=== PATIENT | female | born 1940 | race Two or more races ===

== ENCOUNTER 2020-06-07 06:31 | Day surgery (SDC) | payer MEDICARE, MEDICAID ==
--- NOTE | 2020-06-04 16:06 | Pre-Procedure Note/Attestation ---
Pre-Procedure Note/Attestation Complete Prior to Procedure Planned Procedure: right Procedure Narrative: Cataract extraction with IOL implant right eye Indications for Procedure Pre-Operative Diagnosis: Nuclear sclerotic cataract right eye Attestation I attest that I discussed the nature of the procedure; its benefits; risks and complications; and alternatives (and the risks and benefits of such alternatives), prior to the procedure, with the patient (or the patient's legal advertising sales representative). I attest that, if there was a reasonable possibility of needing a blood transfusion, the patient (or the patient's legal advertising sales representative) was given the [facility] standardized written summary, pursuant to the [employer] [place] Blood Safety Act ([place] Health and Safety Code # 1645, as amended). I attest that I re-evaluated the patient just prior to the surgery and that there has been no change in the patient's H&P, except as documented below: Odilon Snyder MD Jun 04, 2020 16:06
--- NOTE | 2020-06-04 16:09 | Opthalmology H&P ---
Ophthalmology H&P H&P Chief Complaint: decreased vision in right eye HPI Vision Affects Ability to: read, manage personal affairs HPI Narrative Blurry vision Exam Visual Acuity: OD 20/125 OS Counting fingers Tension: OD 14 OS 11 Eye Exam: normal OU: external exam, palpebral fissure-width, marginal reflex distance, levator function, corneas, anterior chambers, fundus exam; findings: lens - NS/CC Cataracts OU Assessment/Plan Treatment Plan: cataract extraction w/ lens implant Goals of Treatment: improvement of vision, enhance quality of life Attestation Attestation The risks and benefits of the surgery as well as alternative procedures were explained to the patient in detail. Odilon Snyder MD Jun 04, 2020 16:08
[~2020-06-07] VITALS: Ht 167.6 cm; Wt 53.5 kg
[2020-06-07] VITALS (9 sets, daily range): BP systolic 163–188; BP diastolic 64–82
[~2020-06-07 06:31] MED LIST: Bystolic PO; Tobramycin Op Soln 0.3% 5ml RIGHT EYE ONE
[2020-06-07] MEDS ORDERED: Pilocarpine 1% Opth 15ml Soln ONE (07:00)
[2020-06-07] MEDS ORDERED: Tobradex Opth Oint 3.5gm RIGHT EYE ONE (07:00)
[2020-06-07] MEDS ORDERED: Maxitrol Opth Oint 3.5gm ONE (07:00)
[2020-06-07] MEDS ORDERED: Akten 3.5% 1ml Btl RIGHT EYE ONE (07:00)
[2020-06-07] MEDS ORDERED: Diclofenac Sod 0.1% Op Soln RIGHT EYE ONE (07:00)
[2020-06-07] MEDS ORDERED: Proparacaine 0.5% Opth Soln 15ml RIGHT EYE ONE (07:00)
[2020-06-07] MEDS ORDERED: Cyclopentolate 2% Opth Sol RIGHT EYE ONE (07:00)
[2020-06-07] MEDS ORDERED: prednisoLONE acetate 1% Opth Susp 1ml ONE (07:00)
[2020-06-07] MEDS ORDERED: Tetracaine 0.5% Opth 4ml Soln ONE (07:00)
[2020-06-07] MEDS ORDERED: Tetracaine 0.5% Opth 4ml Soln RIGHT EYE ONE (07:00)
[2020-06-07] MEDS: Phenylephrine 10% Opth Soln 5ml RIGHT EYE SCH ×3 (09:42→10:03)
[2020-06-07] MEDS: Tropicamide 1% Opth 15ml Soln RIGHT EYE SCH ×3 (09:42→10:03)
[2020-06-07] MEDS ORDERED: ASPIRIN EC81 MG ORAL (10:25)
[2020-06-07] MEDS ORDERED: LIPITOR40 MG ORAL (10:25)
[2020-06-07] MEDS ORDERED: CILOSTAZOL100 MG PO (10:26)
[2020-06-07] MEDS ORDERED: NAMENDA5 MG ORAL (10:26)
[2020-06-07] MEDS ORDERED: PLAVIX75 MG ORAL (10:27)
[2020-06-07] MEDS ORDERED: HYDROCODON-ACE1 EA16 ORAL (10:28)
[2020-06-07] MEDS ORDERED: COLACE100 MG ORAL (10:29)
[2020-06-07] MEDS ORDERED: LR 1000ml ONE (11:00)
[2020-06-07] MEDS ORDERED: Sterile Water Irrig 1000ml IRRIG ONE (11:00)
[2020-06-07] MEDS ORDERED: NS Irrig 1000ml ONE (11:00)
[2020-06-07] MEDS ORDERED: fentaNYL 100 mcg/2 mL IV ONE (11:19)
[2020-06-07] MEDS ORDERED: Midazolam 2mg/2ml Inj ONE (11:20)
--- NOTE | 2020-06-07 11:39 | Anethesia Preoperative Eval ---
Anesthesia Pre-op PMH/ROS General Date of Evaluation: Jun 07, 2020 Time of Evaluation: 11:16 Anesthesiologist: tu ASA Score: ASA 4 Mallampati Score Class I : Soft palate, uvula, fauces, pillars visible Class II: Soft palate, uvula, fauces visible Class III: Soft palate, base of uvula visible Class IV: Only hard plate visible Mallampati Classification: Class II Surgeon: deirdre Diagnosis: nuclear sclerotic cataract right eye Surgical Procedure: cataract extraction w/ iol right eye Anesthesia History: none Social History: smoking - fomer smoker Family History: no anesthesia problems Allergies: Coded Allergies: No Known Allergies (Unverified , 06/03/20) Medications: see eMAR Patient NPO?: Yes Past Medical History Cardiovascular: Reports: HTN, CAD, [place], other - pvd Gastrointestinal/Genitourinary: Reports: CRI Neurologic/Psychiatric: Reports: CVA HEENT: Reports: cataract (L), cataract (R) Musculoskeletal/Integumentary: Reports: OA Anesthesia Pre-op Phys. Exam Physician Exam Last Vital Signs Date Time Temp Pulse Resp B/P (MAP) Pulse Ox O2 Delivery O2 Flow Rate FiO2 06/07/20 10:18 Room Air 06/07/20 09:51 98.4 69 18 177/74 99 Constitutional: NAD Neurologic: CN 2-12 intact Cardiovascular: RRR Respiratory: CTA Gastrointestinal: S/NT/ND Airway Exam Mallampati Score: Class II MO: limited Neck: flexible TMD: 2fb ROM: limited Anesthesia Pre-op A/P Labs Microbiology Date/Time Source Procedure Growth Status 06/04/20 10:25 Nasopharynx SARS-CoV-2 RdRp Gene Assay - Final Complete Risk Assessment & Plan Assessment: asa4 Plan: mac Status Change Before Surgery: No Pre-Antibiotics Drug: Rand Delgadillo MD Jun 07, 2020 11:39
[2020-06-07] MEDS ORDERED: Atropine Inj 1mg/10ml Syr IVP PRN (11:45)
[2020-06-07] MEDS ORDERED: LR 1000ml 1,000 ML IVLG SCH (11:45)
[2020-06-07] MEDS ORDERED: Labetalol 5mg/ml 20ml vial IV PRN (11:45)
[2020-06-07] MEDS ORDERED: fentaNYL 100 mcg/2 mL IV PRN (11:45)
[2020-06-07] MEDS ORDERED: DiphenhydrAMINE 50mg/ml Inj IVP PRN (11:45)
[2020-06-07] MEDS ORDERED: Midazolam 2mg/2ml Inj IVP PRN (11:45)
--- NOTE | 2020-06-07 14:16 | Immediate Post-Op Evaluation ---
Immediate Post-Op Evalulation Immediate Post-Op Evalulation Procedure: cataract extraction w/iol right eye Date of Evaluation: Jun 07, 2020 Time of Evaluation: 12:14 IV Fluids: 500ml lr Blood Products: none Estimated Blood Loss: negligible Blood Pressure Systolic: 171 Blood Pressure Diastolic: 73 Pulse Rate: 80 Respiratory Rate: 18 O2 Sat by Pulse Oximetry: 99 Temperature (Fahrenheit): 98.7 Pain Score (1-10): 0 Nausea: No Vomiting: No Complications none Patient Status: awake, reacts, patent Hydration Status: adequate Drug: Rand Delgadillo MD Jun 07, 2020 14:16
--- NOTE | 2020-06-07 14:17 | 48 Hour Post Anesthesia Eval ---
Post Anesthesia Evaluation Procedure: cataract extraction w/iol right eye Date of Evaluation: Jun 07, 2020 Time of Evaluation: 12:16 Blood Pressure Systolic: 167 0: 65 Pulse Rate: 64 Respiratory Rate: 18 Temperature (Fahrenheit): 98.7 O2 Sat by Pulse Oximetry: 99 Airway: patent Nausea: No Vomiting: No Pain Intensity: 0 Hydration Status: adequate Cardiopulmonary Status: stable Mental Status/LOC: patient returned to baseline Post-Anesthesia Complications: none Follow-up care needed: N/A Rand Butler MD Jun 07, 2020 14:17
[2020-06-07] MEDS ORDERED: BSS 15ml BTL ONE (14:21)
[2020-06-07] MEDS ORDERED: Povidone-Iodine 5% opth solution ONE (14:21)
[2020-06-07] MEDS ORDERED: EPINEPHrine 1mg/1ml Amp ONE (14:21)
[2020-06-07] MEDS ORDERED: BSS 500ml btl ONE (14:21)
[2020-06-07] MEDS ORDERED: Sodium Hyaluronate 10 mg/ml 0.85ml ONE (14:21)
--- NOTE | 2020-06-08 11:04 | Brief Operative Note ---
Immediate Post Operative Note Operative Note Chief Complaint: Blurry vision Pre-op Diagnosis: Nuclear sclerotic cataract right eye Procedure: Cataract extraction with IOL implant right eye Post-op Diagnosis: Pseudo OD Findings: consistent w/pre-op dx studies Surgeon: Odilon Snyder MD Anesthesiologist: Rand Lewis MD Anesthesia: MAC Specimen: none Complications: none Condition: stable Fluids: LR Estimated Blood Loss: none Drains: none Implant(s) used?: Yes - IOL-OD Odilon Snyder MD Jun 08, 2020 11:04
--- NOTE | 2020-06-08 11:07 | Operative Note - PDOC ---
Operative Note Operative Note Date of Operation/Procedure: Jun 07, 2020 Chief Complaint: Blurry vision Pre-op Diagnosis: Nuclear sclerotic cataract right eye Procedure: Cataract extraction with IOL implant right eye Post-op Diagnosis: Pseudo OD Operative Findings: consistent w/pre-op dx studies Surgeon: Odilon Snyder MD Anesthesiologist: Rand Lewis MD Anesthesia: MAC Specimen: none Complications: none Condition: stable Fluids: LR Estimated Blood Loss: none Drains: none Implant(s) used?: Yes - IOL-OD Indications for Procedure Nuclear sclerotic cataract right eye Description of Procedure This patient has been complaining visually significant cataract in the right eye with the best corrected visual acuity of 20/125 and under moderate glare conditions worse. The patient complains of difficulties with glare in performing activities of daily living and wants to manage personal affairs with comfort and accuracy and see well enough to move with safety at home and outdoors. The risks, benefits and alternatives of the procedure were discussed with the patient in the office prior to scheduling surgery. All questions from the patient were answered after the surgical procedure was explained in detail. The risks of the procedure as explained to the patient include, but are not limited to, pain, infection, bleeding, loss of vision, retinal detachment, need for further surgery, loss of lens nucleus, double vision, etc. Alternative procedure s were discussed which include, to do nothing or seek a second opinion. Informed consent for this procedure was obtained from the patient. The patient was referred to a primary care physician for a cardiopulmonary clearance prior to surgery, after proper evaluation was done patient was properly scheduled for outpatient surgery. The patient was brought to the operating room where the anesthesiologist established I.V. lines and cardiac monitoring leads. Mild intravenous sedation was administered. The patient was then prepared with a 5% solution of povidone-iodine to the conjunctival fornix and lashes, and a 5% solution of povidone-iodine to the lids and periorbital skin. The patient was then draped in the usual sterile fashion. A lid speculum was then placed in the operative eye. A keratome blade was then used to create a biplanar incision into the anterior chamber. Viscoelastics was then instilled into the anterior chamber. A capsulorrhexis was then fashioned with an utrata forceps. The lens nucleus was hydrodissected and hydrodelineated with a G 27 Cannula. Paracentesis incision was made at 3 o'clock with sharp blade. The phacoemulsification unit, after being properly adjusted and tested, was then used to emulsify the nucleus followed by aspiration and irrigation of residual cortical material. [place] was then instilled into the anterior chamber. The corneal wound was then enlarged to the size of the optic with the geovanni keratome blade. The intraocular lens was then inspected for right power and size and thought to be satisfactory. Then the lens was gently placed in the capsular bag. Positioning within the capsular bag was confirmed by direct visualization. Optic centration was accomplished with a [place] hook. Viscoelastics was removed from the anterior chamber using the irrigation and aspiration unit. The corneal wound was then tested for leaks and none were found. The lid speculum were then removed. Sponge and needle counts were correct. An eye patch and shield were placed over the operative eye. The patient was taken to the recovery room in stable condition. There were no complications. The patient tolerated the procedure well. The patient was then transferred to the ambulatory surgery unit in stable and satisfactory condition, was given detailed written instructions and asked to follow up in the office the next day. Odilon Snyder MD Jun 08, 2020 11:06
== END 2020-06-07 13:30 | disposition home or self-care (01) ==
LOC: SUR 06:31
DX: H25.11 Age-related nuclear cataract, right eye (principal); Z87.891 Personal history of nicotine dependence; I25.2 Old myocardial infarction; I11.9 Hypertensive heart disease without heart failure; I25.10 Atherosclerotic heart disease of native coronary artery without angina pectoris; M19.90 Unspecified osteoarthritis, unspecified site; Z86.73 Personal history of transient ischemic attack (TIA), and cerebral infarction without residual deficits
CPT/HCPCS: 66984; 94003; J0171; J1100; J2250; J3010; J3370; J7120; U0002; V2632; 94150

== ENCOUNTER 2020-07-05 06:25 | Day surgery (SDC) | payer MEDICARE, MEDICAID ==
--- NOTE | 2020-07-01 18:03 | Opthalmology H&P ---
Ophthalmology H&P H&P Chief Complaint: decreased vision in left eye HPI Vision Affects Ability to: read, focus/use eyes together, manage personal affairs HPI Narrative Blurry vision Exam Visual Acuity: OD 20/20 OS COUNTING FINGERS Tension: OD 15 OS 14 Eye Exam: normal OU: external exam, palpebral fissure-width, marginal reflex di stance, levator function, corneas, anterior chambers, fundus exam; findings: lens - IOL-OD,NS Cataract OS Assessment/Plan Treatment Plan: cataract extraction w/ lens implant Goals of Treatment: improvement of vision, enhance quality of life Attestation Attestation The risks and benefits of the surgery as well as alternative procedures were explained to the patient in detail. Odilon Snyder MD Jul 01, 2020 18:03
--- NOTE | 2020-07-01 18:04 | Pre-Procedure Note/Attestation ---
Pre-Procedure Note/Attestation Complete Prior to Procedure Planned Procedure: left Procedure Narrative: Cataract extraction with intraocular lens implant left eye Indications for Procedure Pre-Operative Diagnosis: Nuclear sclerotic cataract left eye Attestation I attest that I discussed the nature of the procedure; its benefits; risks and complications; and alternatives (and the risks and benefits of such alternatives), prior to the procedure, with the patient (or the patient's legal client service representative). I attest that, if there was a reasonable possibility of needing a blood transfusion, the patient (or the patient's legal client service representative) was given the [facility] standardized written summary, pursuant to the [employer] [place] Blood Safety Act ([place] Health and Safety Code # 1645, as amended). I attest that I re-evaluated the patient just prior to the surgery and that there has been no change in the patient's H&P, except as documented below: Odilon Snyder MD Jul 01, 2020 18:04
[~2020-07-05] VITALS: Ht 167.6 cm; Wt 54.4 kg
[2020-07-05] VITALS (10 sets, daily range): BP systolic 135–200; BP diastolic 67–95
[~2020-07-05 06:25] MED LIST changes: +ASPIRIN EC81 MG ORAL; +CILOSTAZOL100 MG PO; +COLACE100 MG ORAL; +HYDROCODON-ACE1 EA16 ORAL; +LIPITOR40 MG ORAL; +NAMENDA5 MG ORAL; +PLAVIX75 MG ORAL; -Tobramycin Op Soln 0.3% 5ml RIGHT EYE ONE
[2020-07-05] MEDS ORDERED: Maxitrol Opth Oint 3.5gm ONE (06:26)
[2020-07-05] MEDS ORDERED: fentaNYL 100 mcg/2 mL IV ONE (06:26)
[2020-07-05] MEDS ORDERED: Sterile Water Irrig 2000ml IRRIG ONE (06:26)
[2020-07-05] MEDS ORDERED: prednisoLONE acetate 1% Opth Susp 1ml ONE (06:26)
[2020-07-05] MEDS ORDERED: LR 1000ml ONE (06:26)
[2020-07-05] MEDS ORDERED: NS Irrig 1000ml ONE (06:26)
[2020-07-05] MEDS ORDERED: Akten 3.5% 1ml Btl LEFT EYE ONE (07:00)
[2020-07-05] MEDS ORDERED: Proparacaine 0.5% Opth Soln 15ml LEFT EYE ONE (07:00)
[2020-07-05] MEDS ORDERED: Tetracaine 0.5% Opth 4ml Soln LEFT EYE ONE (07:00)
[2020-07-05] MEDS: Phenylephrine 10% Opth Soln 5ml LEFT EYE SCH ×3 (08:26→08:57)
[2020-07-05] MEDS: Tropicamide 1% Opth 15ml Soln LEFT EYE SCH ×3 (08:26→08:57)
[2020-07-05] MEDS: Diclofenac Sod 0.1% Op Soln LEFT EYE SCH ×3 (08:26→08:57)
[2020-07-05] MEDS: Tobramycin Op Soln 0.3% 5ml LEFT EYE SCH ×3 (08:26→08:57)
--- NOTE | 2020-07-05 10:13 | Anethesia Preoperative Eval ---
Anesthesia Pre-op PMH/ROS General Date of Evaluation: Jul 05, 2020 Time of Evaluation: 10:10 Anesthesiologist: Marleen ASA Score: ASA 3 Mallampati Score Class I : Soft palate, uvula, fauces, pillars visible Class II: Soft palate, uvula, fauces visible Class III: Soft palate, base of uvula visible Class IV: Only hard plate visible Mallampati Classification: Class II Surgeon: Lillian Diagnosis: L eye cataract Surgical Procedure: Cataract extractiion Anesthesia History: none Family History: no anesthesia problems Allergies: Coded Allergies: No Known Allergies (Unverified , 06/03/20) Medications: see eMAR Patient NPO?: Yes Past Medical History Cardiovascular: Reports: HTN, CAD, other - PVD; Denies: [place], valve dz, arrhythmia Pulmonary: Denies: asthma, COPD, ANTONIA, other Gastrointestinal/Genitourinary: Reports: GERD, CRI Neurologic/Psychiatric: Reports: CVA, depression/anxiety; Denies: dementia, TIA, other Endocrine: Reports: hypothyroidism; Denies: DM, steroids, other HEENT: Reports: cataract (L), cataract (R) Hematology/Immune: Reports: anemia - mild; Denies: DVT, bleeding disorder, other Musculoskeletal/Integumentary: Reports: OA Other: other - malnourished PMH Narrative: as above PSxH Narrative: see H&P Anesthesia Pre-op Phys. Exam Physician Exam Last Vital Signs Date Time Temp Pulse Resp B/P (MAP) Pulse Ox O2 Delivery O2 Flow Rate FiO2 07/05/20 08:45 Room Air 07/05/20 08:31 98.3 72 18 181/76 100 Constitutional: NAD Neurologic: CN 2-12 intact Cardiovascular: RRR, no M/R/G Respiratory: CTA Gastrointestinal: S/NT/ND Airway Exam Mallampati Score: Class II MO: limited Neck: stiff ROM: limited Teeth: missing Dentures: no upper, no lower Anesthesia Pre-op A/P Labs see chart Studies Pre-op Studies: EKG - SR Risk Assessment & Plan Assessment: ASA 3 Plan: MAC Status Change Before Surgery: Alvarez Shukla MD Jul 05, 2020 10:13
[2020-07-05] MEDS ORDERED: fentaNYL 100 mcg/2 mL IV PRN (10:15)
[2020-07-05] MEDS ORDERED: LR 1000ml 1,000 ML IVLG SCH (10:15)
--- NOTE | 2020-07-05 11:24 | Immediate Post-Op Evaluation ---
Immediate Post-Op Evalulation Immediate Post-Op Evalulation Procedure: L eye cataract extraction with IOL Date of Evaluation: Jul 05, 2020 Time of Evaluation: 11:22 IV Fluids: 300 Blood Products: NONE Estimated Blood Loss: NONE Urinary Output: none Blood Pressure Systolic: 168 Blood Pressure Diastolic: 87 Pulse Rate: 77 Respiratory Rate: 20 O2 Sat by Pulse Oximetry: 98 Temperature (Fahrenheit): 97.6 Pain Score (1-10): 2 Nausea: No Vomiting: No Complications none Patient Status: awake, patent, none Hydration Status: adequate Alvarez Hawley MD Jul 05, 2020 11:24
--- NOTE | 2020-07-05 11:30 | 48 Hour Post Anesthesia Eval ---
Post Anesthesia Evaluation Procedure: L eye cataract extraction with IOL Date of Evaluation: Jul 05, 2020 Time of Evaluation: 11:28 Blood Pressure Systolic: 168 0: 72 Pulse Rate: 68 Respiratory Rate: 11 Temperature (Fahrenheit): 97.6 O2 Sat by Pulse Oximetry: 99 Airway: patent Nausea: No Vomiting: No Pain Intensity: 3 Hydration Status: adequate Cardiopulmonary Status: stable Mental Status/LOC: patient returned to baseline Follow-up Care/Observations: n/a Post-Anesthesia Complications: none Follow-up care needed: ready to discharge Alvarez Hawley MD Jul 05, 2020 11:30
[2020-07-05] MEDS ORDERED: EPINEPHrine 1mg/1ml Amp ONE ×2 (12:44→12:46)
[2020-07-05] MEDS ORDERED: BSS 15ml BTL ONE (12:45)
[2020-07-05] MEDS ORDERED: Povidone-Iodine 5% opth solution ONE (12:45)
[2020-07-05] MEDS ORDERED: Sodium Hyaluronate 10 mg/ml 0.85ml ONE (12:45)
[2020-07-05] MEDS ORDERED: BSS 500ml btl ONE (12:45)
--- NOTE | 2020-07-06 09:34 | Brief Operative Note ---
Immediate Post Operative Note Operative Note Chief Complaint: blurry vision Pre-op Diagnosis: Nuclear sclerotic cataract left eye Procedure: Cataract extraction with IOL implant left eye Post-op Diagnosis: Pseudo OS Findings: consistent w/pre-op dx studies Surgeon: Odilon Snyder MD Anesthesiologist: Alvarez Hawley MD Anesthesia: MAC Specimen: none Complications: none Condition: stable Fluids: LR Estimated Blood Loss: none Drains: none Implant(s) used?: Yes - IOL-OS Odilon Snyder MD Jul 06, 2020 09:34
--- NOTE | 2020-07-06 09:37 | Operative Note - PDOC ---
Operative Note Operative Note Date of Operation/Procedure: Jul 05, 2020 Chief Complaint: blurry vision Pre-op Diagnosis: Nuclear sclerotic cataract left eye Procedure: Cataract extraction with IOL implant left eye Post-op Diagnosis: Pseudo OS Operative Findings: consistent w/pre-op dx studies Surgeon: Odilon Snyder MD Anesthesiologist: Alvarez Hawley MD Anesthesia: MAC Specimen: none Complications: none Condition: stable Fluids: LR Estimated Blood Loss: none Drains: none Implant(s) used?: Yes - IOL-OS Indications for Procedure Nuclear sclerotic cataract left eye Description of Procedure This patient has been complaining visually significant cataract in the left eye with the best corrected visual acuity of counting fingers. The patient complains of difficulties with glare in performing activities of daily living and wants to manage personal affairs with comfort and accuracy and see well enough to move with safety at home and outdoors. The risks, benefits and alternatives of the procedure were discussed with the patient in the office prior to scheduling surgery. All questions from the patient were answered after the surgical procedure was explained in detail. The risks of the procedure as explained to the patient include, but are not limited to, pain, infection, bleeding, loss of vision, retinal detachment, need for further surgery, loss of lens nucleus, double vision, etc. Alternative procedures were discussed which include, to do nothing or seek a second opinion. Informed consent for this procedure was obtained from the patient. The patient was referred to a primary care physician for a cardiopulmonary clearance prior to surgery, after proper evaluation was done patient was properly scheduled for outpatient surgery. The patient was brought to the operating room where the anesthesiologist established I.V. lines and cardiac monitoring leads. Mild intravenous sedation was administered. The patient was then prepared with a 5% solution of povidone-iodine to the conjunctival fornix and lashes, and a 5% solution of povidone-iodine to the lids and periorbital skin. The patient was then draped in the usual sterile fashion. A lid speculum was then placed in the operative eye. A keratome blade was then used to create a biplanar incision into the anterior chamber. Viscoelastics was then instilled into the anterior chamber. A 3-mm single pass clear corneal incision was made just anterior to the vascular arcade of the temporal limbus using a keratome. Anterior capsulorrhexis was created. The nucleus was hydrodissected and hydrodelineated, and was freely movable in the capsular bag. The nucleus was then phacoemulsified using a quadrantic [id number] technique. Following the deep groove formation, the lens was split bimanually and the resultant quadrants and cortical material was removed under vacuum burst-mode phacoemulsification. Peripheral cortex was removed with the irrigation and aspiration handpiece. The capsular bag was expanded with vi scoelastic. The intraocular lens was then inspected for right power and size and thought to be satisfactory. The implant was inspected under the microscope and found to be free of defects. The implant was inserted into the cartridge system under viscoelastic and placed in the capsular bag. The trailing haptic was positioned with the cartridge system. Viscoelastics was removed from the anterior chamber using the irrigation and aspiration unit. The corneal wound was then tested for leaks and none were foun d. The lid speculum were then removed. Sponge and needle counts were correct. An eye patch and shield were placed over the operative eye. The patient was taken to the recovery room in stable condition. There were no complications. The patient tolerated the procedure well. The patient was then transferred to the ambulatory surgery unit in stable and satisfactory condition, was given detailed written instructions and asked to follow up in the office the next day. Odilon Snyder MD Jul 06, 2020 09:37
== END 2020-07-05 13:00 | disposition home or self-care (01) ==
LOC: SUR 06:25
DX: H25.12 Age-related nuclear cataract, left eye (principal); I11.9 Hypertensive heart disease without heart failure; I25.10 Atherosclerotic heart disease of native coronary artery without angina pectoris; K21.9 Gastro-esophageal reflux disease without esophagitis; Z86.73 Personal history of transient ischemic attack (TIA), and cerebral infarction without residual deficits; F32.9 Major depressive disorder, single episode, unspecified; F41.9 Anxiety disorder, unspecified; E03.9 Hypothyroidism, unspecified; M19.90 Unspecified osteoarthritis, unspecified site; D64.9 Anemia, unspecified; E46 Unspecified protein-calorie malnutrition; Z68.1 Body mass index [BMI] 19.9 or less, adult
CPT/HCPCS: 66984; 94003; J0171; J1100; J2704; J3010; J3370; J7120; U0002; V2632; 94150